=== PATIENT | male | born 1940 | race Caucasian/White ===

== ENCOUNTER 2020-09-27 12:16 | Outpatient (REF) | payer MEDICARE, SELFPAY ==
--- NOTE | 2020-09-27 | XR_ITS ---
EXAMINATION: XR SHOULDER, RIGHT CLINICAL INFORMATION: Right shoulder pain COMPARISON: 10/07/2019 TECHNIQUE: Three views of the right shoulder. FINDINGS: 2 surgical anchors are seen in expected location of insertion of the supraspinatus tendon/rotator cuff. No acute fracture or dislocation is evident. There is again noted to be some calcific density about the anterior aspect of the humeral head with some erosive change being evident. There is some mild spurring at the glenohumeral joint. There has been resection of the distal aspect of the right clavicle. No widening of the coracoclavicular space is seen. XR/XR shoulder RT min 2V IMPRESSION: No evidence of acute fracture or dislocation of the right shoulder. No significant change from study of 10/07/2019. Status post previous surgical anchor placement. Calcification which may be related to calcific tendinitis.
== END 2020-09-27 12:17 | disposition home or self-care (01) ==
LOC: HO.HOSX 12:16
PROVIDERS: PCP Internal Medicine; Visit Provider Physician Assistant
DX: M75.81 Other shoulder lesions, right shoulder (principal); M75.82 Other shoulder lesions, left shoulder
CPT/HCPCS: 20610; 73030; 99212; J1020

== ENCOUNTER 2020-12-01 08:42 | Outpatient (REF) | payer MEDICARE, SELFPAY ==
--- NOTE | 2020-12-01 09:43 | XR_ITS ---
EXAMINATION: XR KNEE, RIGHT XR KNEE STANDING BILATERAL CLINICAL INFORMATION: Osteoarthritis of right knee COMPARISON: 10/21/2019 and 07/06/2020 TECHNIQUE: AP standing view both knees Lateral and sunrise views of right knee FINDINGS: The AP standing view shows meniscal chondrocalcinosis and chronic osteoarthritis of tibiofemoral compartments of each knee. There is chronic, moderate loss of medial tibiofemoral joint space of each knee with subarticular sclerosis and marginal osteophyte formation. The joint space loss of the medial compartment the right knee is slightly worse compared to 10/21/2019, and is similar compared to 07/06/2020. The lateral and sunrise views of the right knee show normal alignment. Small joint effusion is present. There is and [id number] osteoarthritis of the patellofemoral compartment. No fracture or other acute pathology. Peripheral vessels are calcified. XR/XR knee RT 2V IMPRESSION: * The chronic tricompartmental osteoarthritis of the right knee is worst (moderate in severity) at the medial tibiofemoral compartment. No progression in the right knee osteoarthritis compared to 07/06/2020. * The osteoarthritis of the left knee (worst at the medial tibiofemoral compartment) remains similar in appearance compared to 10/21/2019.
--- NOTE | 2020-12-01 09:43 | XR_ITS ---
EXAMINATION: XR KNEE, RIGHT XR KNEE STANDING BILATERAL CLINICAL INFORMATION: Osteoarthritis of right knee COMPARISON: 10/21/2019 and 07/06/2020 TECHNIQUE: AP standing view both knees Lateral and sunrise views of right knee FINDINGS: The AP standing view shows meniscal chondrocalcinosis and chronic osteoarthritis of tibiofemoral compartments of each knee. There is chronic, moderate loss of medial tibiofemoral joint space of each knee with subarticular sclerosis and marginal osteophyte formation. The joint space loss of the medial compartment the right knee is slightly worse compared to 10/21/2019, and is similar compared to 07/06/2020. The lateral and sunrise views of the right knee show normal alignment. Small joint effusion is present. There is and [id number] osteoarthritis of the patellofemoral compartment. No fracture or other acute pathology. Peripheral vessels are calcified. XR/XR knee standing BI IMPRESSION: * The chronic tricompartmental osteoarthritis of the right knee is worst (moderate in severity) at the medial tibiofemoral compartment. No progression in the right knee osteoarthritis compared to 07/06/2020. * The osteoarthritis of the left knee (worst at the medial tibiofemoral compartment) remains similar in appearance compared to 10/21/2019.
== END 2020-12-01 08:43 | disposition home or self-care (01) ==
LOC: HO.HOSX 08:42
PROVIDERS: PCP Internal Medicine; Visit Provider Orthopaedic Surgery
DX: M17.0 Bilateral primary osteoarthritis of knee (principal)
CPT/HCPCS: 73560; 73565; 99212

== ENCOUNTER 2021-01-06 08:54 | Outpatient (REF) | payer MEDICARE, SELFPAY ==
[2021-01-06 09:43] LABS: MANUAL DIFF FLAG NO
[2021-01-06 09:47] LABS: Basophils Percent Auto 0.4 % (0-2); Eosinophils Absolute Auto 0.3 X10*3/uL (0.0-0.4); Eosinophils Percent Auto 5.9 % (0-4); Hematocrit 46.1 % (42-52); Hemoglobin 14.8 g/dl (14.0-18.0); Imm Gran Abs Auto 0.01 X10*3/uL (0.00-0.03); Imm Gran Pct Auto 0.2 % (0.0-0.4); Lymphocytes Absolute Auto 1.9 X10*3/uL (1.2-4.9); Lymphocytes Percent Auto 34.6 % (20-40); Mean Corpuscular HGB Conc 32.1 g/dl (31.0-36.0); Mean Corpuscular Hemoglobin 29.5 pg (27.0-33.0); Mean Corpuscular Volume 91.8 fL (80-98); Mean Platelet Volume 9.3 fL (9.4-12.4); Monocytes Absolute Auto 0.5 X10*3/uL (0.1-1.2); Monocytes Percent Auto 8.3 % (2-11); Neutrophils Absolute Auto 2.7 X10*3/uL (2.0-8.3); Neutrophils Percent Auto 50.6 % (45-73); Platelet Count 290 X10*3/uL (160-400); Red Blood Count 5.02 X10*6/uL (4.60-5.80); Red Cell Distribution Width 14.1 % (11.0-16.0); White Blood Count 5.4 X10*3/uL (4.8-10.8)
[2021-01-06 09:55] LABS: Estimated Average Glucose 126 mg/dL
[2021-01-06 10:12] LABS: Alanine Aminotransferase 14 U/L (0-40); Albumin Level 4.2 g/dL (3.5-5.0); Alkaline Phosphatase 85 U/L (39-117); Anion Gap 11 (12-20); Aspartate Amino Transferase 14 U/L (5-37); Blood Urea Nitrogen 14 mg/dL (9-16); Calcium 9.7 mg/dL (8.4-10.2); Carbon Dioxide 31 mmol/L (22-29); Chloride 106 mmol/L (96-108); Cholesterol 175 mg/dL; Estimated Glomerular Filt Rate > 60; Glucose Random 112 mg/dL (60-115); HDL Cholesterol 39 mg/dL; LDL Cholesterol Calculated 110 mg/dl; Potassium 4.8 mmol/L (3.3-5.1); Sodium 143 mmol/L (135-145); Total Protein 7.3 g/dL (6.5-8.0); Triglycerides 134 mg/dL
[2021-01-06 10:27] LABS: Creatinine Urine 81.68 mg/dL; Microalbum/Creatinine Ratio Ur 85.7 ug/mg cr
[2021-01-06 10:28] LABS: Free T4 (Free Thyroxine) 1.04 ng/dL (0.71-1.85); Thyroid Stimulating Hormone 3.53 uIU/mL (0.32-4.0)
[2021-01-08 09:40] LABS: Folate 11.5 ng/mL (> or = 4.0); Vitamin B12 240 pg/mL (200-900)
== END 2021-01-06 08:55 | disposition home or self-care (01) ==
LOC: HO.LAB 08:54
PROVIDERS: PCP Internal Medicine; Visit Provider Internal Medicine
DX: E11.65 Type 2 diabetes mellitus with hyperglycemia (principal); I10 Essential (primary) hypertension; E78.00 Pure hypercholesterolemia, unspecified
CPT/HCPCS: 36415; 80053; 80061; 82043; 82607; 82746; 83036; 84439; 84443; 85025

== ENCOUNTER → 2021-01-10 09:19 | Outpatient (BNVA) | payer MEDICARE, SELFPAY | PROVIDERS: PCP Internal Medicine; Visit Provider Orthopaedic Surgery ==

== ENCOUNTER → 2021-02-02 12:46 | Outpatient (BNVA) | payer MEDICARE, SELFPAY | PROVIDERS: PCP Internal Medicine; Visit Provider Physician Assistant | DX: M17.11 Unilateral primary osteoarthritis, right knee (principal) | CPT/HCPCS: 99212 ==

== ENCOUNTER 2021-02-03 | Outpatient (REF) | payer MEDICARE, SELFPAY ==
--- NOTE | 2021-02-03 | ECG_ITS ---
Test Reason : PRE OP Blood Pressure : / mmHG Vent. Rate : 059 BPM Atrial Rate : 059 BPM P-R Int : 256 ms QRS Dur : 084 ms QT Int : 402 ms P-R-T Axes : 058 031 039 degrees QTc Int : 397 ms Sinus bradycardia with 1st degree A-V block Otherwise normal ECG When compared with ECG of 29-NOV-2018 11:06, No significant change was found Referred By: Anahi Suarez Electronically Signed By:Lazarus Ybarra
--- NOTE | 2021-02-03 11:00 | P.CONAN_ITS ---
HPI - Anesthesia Eval Consult details Narrative: 81yo M for Right Knee Replacement Total daily opioids PCP cleared Pending EKG [facility] Active Problems Active Problems: All Active Problems (Updated 01/28/21 @ 12:56 by Herman Paul MD) Osteoarthritis, knee (Acute) Primary osteoarthritis of left knee (Acute) Primary osteoarthritis of right knee (Acute) Tendinitis of both rotator cuffs (Acute) Lateral epicondylitis of right elbow (Acute) Osteoarthritis of right knee (Acute) Hypercholesterolemia (Acute) Hypertension (Acute) Type 2 diabetes mellitus with hyperglycemia (Acute) Past Medical History Medical History (Updated 02/03/21 @ 12:07 by Mirella Mullen) Arthritis Carpal tunnel syndrome Cervical radicular pain Diabetic neuropathy Gout Hx of prostatic malignancy Hypercholesterolemia Hypertension Osteoarthritis, knee Peripheral vascular disease Type 2 diabetes mellitus with hyperglycemia Vitamin B12 deficiency Family History Family History Father No problems noted. Mother Heart disease Family history of problems with anesthesia: No Surgical History Surgical History (Updated 02/03/21 @ 12:07 by Mirella Mullen) H/O colonoscopy H/O left knee surgery H/O right knee surgery History of cataract surgery History of cholecystectomy History of lumbar surgery History of prostatectomy History of shoulder surgery History of thyroid nodule History of ventral hernia repair Hx of carpal tunnel repair History of Problems with Anesthesia: No Social History Social History (Updated 02/03/21 @ 12:12 by Mirella Mullen) Are you a primary health care manager to a significant other at home: No Do you presently have visiting nurse or other home services: Yes Alcohol intake: never Smoking Status: Never smoker Use of substances other than those prescribed or required for medical reasons: No Have you been hit, kicked, punched, or otherwise hurt by someone within the past year? If so, by whom?: No Advance Directives Information Provided: No Recently lost weight without trying: No service: Yes Current occupational status: disabled Current occupation: rt handed Narrative Narrative: No recent illness. Activity limited to pain. NO SOB/CP at rest. Meds Allergies Allergy/AdvReac Type Severity Reaction Status Date / Time No Known Allergies Allergy Verified 02/07/21 06:53 Home Medications Medication Instructions Recorded Confirmed Last Taken Type aspirin 81 mg tablet,delayed 81 mg PO DAILY 09/20/20 02/03/21 01/24/21 08:00 History release atorvastatin 10 mg tablet 10 mg PO DAILY 09/20/20 02/03/21 Unknown History folic acid 1 mg tablet 1 mg PO DAILY 09/20/20 02/03/21 Unknown History metoprolol succinate 25 mg 25 mg PO DAILY 09/20/20 02/03/21 Unknown History tablet,extended release 24 hr Exam Exam Date and Time: February 03, 2021 1100 Pertinent Lab Results Pertinent Lab Results: Laboratory Tests 01/06/21 01/06/21 01/06/21 09:05 09:05 09:05 WBC 5.4 Hgb 14.8 Hct 46.1 Plt Count 290 Sodium 143 Potassium 4.8 Chloride 106 Carbon Dioxide 31 H BUN 14 Creatinine 1.03 Estimated GFR > 60 Hemoglobin A1c % 6.0 Calcium 9.7 Total Bilirubin 1.0 AST 14 ALT 14 Alkaline Phosphatase 85 Total Protein 7.3 Albumin 4.2 TSH 3.53 Free T4 1.04 Narrative Narrative: EKG 01/2021 Vent. Rate : 059 BPM Atrial Rate : 059 BPM P-R Int : 256 ms QRS Dur : 084 ms QT Int : 402 ms P-R-T Axes : 058 031 039 degrees QTc Int : 397 ms Sinus bradycardia with 1st degree A-V block Otherwise normal ECG When compared with ECG of 29-NOV-2018 11:06, No significant change was found Airway Mallampati Class: I TM Dist: >3cm Neck ROM: Full Denture: Upper Loose/Missing/Broken Teeth: Yes (lower molars missing) Heart: RRR Lungs: CTAB Assessment and Plan Assessment Anesthesia Assessment: Anesthesia Plan Discussed and PAT Visit
[2021-02-03 11:56] VITALS: BP 168/83; PULSE 68; RESP 20; O2SAT 98; BMI 26.9
[2021-02-03 13:39] LABS: Alanine Aminotransferase 10 U/L (0-40); Albumin Level 4.1 g/dL (3.5-5.0); Alkaline Phosphatase 75 U/L (39-117); Anion Gap 9 (12-20); Aspartate Amino Transferase 13 U/L (5-37); Bilirubin Total 0.4 mg/dL (0.0-1.0); Blood Urea Nitrogen 12 mg/dL (9-16); Calcium 9.4 mg/dL (8.4-10.2); Carbon Dioxide 29 mmol/L (22-29); Chloride 108 mmol/L (96-108); Cholesterol 123 mg/dL; Creatinine Clr Calc Pharmacy 67.9; Estimated Glomerular Filt Rate > 60; Glucose Random 108 mg/dL (60-115); HDL Cholesterol 38 mg/dL; LDL Cholesterol Calculated 55 mg/dl; Potassium 3.9 mmol/L (3.3-5.1); Sodium 142 mmol/L (135-145); Total Protein 6.9 g/dL (6.5-8.0); Triglycerides 152 mg/dL
[2021-02-03 13:52] LABS: Estimated Average Glucose 120 mg/dL; Hemoglobin A1c % 5.8 %
[2021-02-03 14:02] LABS: Creatinine Urine 123.42 mg/dL
[2021-02-03 14:16] LABS: MRSA Nasal PCR NEGATIVE (Negative); SA Nasal PCR NEGATIVE (Negative)
[2021-02-07 06:48] LABS: COVID-19 Test Negative (Negative); IDNOW Serial# 9DD0AD1C
[2021-02-07 07:00] LABS: Glucose, Whole Blood 112 mg/dL (60-115)
== END 2021-02-07 06:19 | disposition home or self-care (01) ==
LOC: HO.PAT
PROVIDERS: Physician Assistant; PCP Internal Medicine; Visit Provider Orthopaedic Surgery
DX: Z01.818 Encounter for other preprocedural examination (principal); M17.11 Unilateral primary osteoarthritis, right knee; E11.65 Type 2 diabetes mellitus with hyperglycemia; E78.00 Pure hypercholesterolemia, unspecified; Z79.891 Long term (current) use of opiate analgesic; Z20.822 Contact with and (suspected) exposure to COVID-19
CPT/HCPCS: 36415; 80053; 80061; 82947; 83036; 86850; 86900; 87635; 87640; 87641; 93005

== ENCOUNTER → 2021-02-21 09:53 | Outpatient (BNVA) | payer MEDICARE, SELFPAY | PROVIDERS: PCP Internal Medicine; Visit Provider Orthopaedic Surgery ==

== ENCOUNTER 2021-02-23 13:24 | Outpatient (REF) | payer MEDICARE, SELFPAY | END 2021-02-23 13:25 | disposition home or self-care (01) | LOC: HO.LAB 13:24 | PROVIDERS: PCP Internal Medicine; Visit Provider Orthopaedic Surgery | DX: Z13.89 Encounter for screening for other disorder (principal) ==

== ENCOUNTER 2021-02-28 08:11 | Inpatient (IN) | payer MEDICARE, SELFPAY ==
--- NOTE | 2021-02-25 13:22 | HO.ANESPROP2 ---
Documented by User: Nadya Humphries 02/25/21 13:25 HPI - Anesthesia Eval Consult details Narrative: 81yo M for Right Knee Replacement Total daily opioids PCP cleared Prev cancelled 01/2021 d/t skin abrasion PMFSH Active Problems Active Problems: All Active Problems (Updated 02/03/21 @ 12:07 by Mirella Mullen) Osteoarthritis of right knee (Acute) Lateral epicondylitis of right elbow (Acute) Tendinitis of both rotator cuffs (Acute) Primary osteoarthritis of right knee (Acute) Primary osteoarthritis of left knee (Acute) Osteoarthritis, knee (Acute) Hypercholesterolemia (Acute) Hypertension (Acute) Type 2 diabetes mellitus with hyperglycemia (Acute) Past Medical History Medical History Arthritis Carpal tunnel syndrome Cervical radicular pain Diabetic neuropathy Gout Hx of prostatic malignancy Hypercholesterolemia Hypertension Osteoarthritis, knee Peripheral vascular disease Type 2 diabetes mellitus with hyperglycemia Vitamin B12 deficiency Family History Family History Father No problems noted. Mother Heart disease Surgical History Surgical History H/O colonoscopy H/O left knee surgery H/O right knee surgery History of cataract surgery History of cholecystectomy History of lumbar surgery History of prostatectomy History of shoulder surgery History of thyroid nodule History of ventral hernia repair Hx of carpal tunnel repair Social History Social History Alcohol intake: never Smoking Status: Never smoker Use of substances other than those prescribed or required for medical reasons: No Advance Directives: No Advance Directives Information Provided: No Advance Directives on File: No Recently lost weight without trying: Yes service: Yes Current occupational status: disabled Current occupation: rt handed Meds Allergies Allergy/AdvReac Type Severity Reaction Status Date / Time No Known Allergies Allergy Verified 02/07/21 06:53 Home Medications Medication Instructions Recorded Confirmed Last Taken Type aspirin 81 mg tablet,delayed 81 mg PO DAILY 09/20/20 02/21/21 01/24/21 08:00 History release atorvastatin 10 mg tablet 10 mg PO DAILY 09/20/20 02/21/21 Unknown History metoprolol succinate 25 mg 25 mg PO DAILY 09/20/20 02/21/21 Unknown History tablet,extended release 24 hr Exam Exam Date and Time: February 25, 2021 1322 Pertinent Lab Results Pertinent Lab Results: Laboratory Tests 02/23/21 13:40 Blood Type A Positive Antibody Screen NEGATIVE Laboratory Tests 01/06/21 02/03/21 09:05 12:48 WBC 5.4 Hgb 14.8 Hct 46.1 Plt Count 290 Sodium 142 Potassium 3.9 Chloride 108 Carbon Dioxide 29 BUN 12 Creatinine 0.88 Narrative Narrative: EKG 01/2021 Vent. Rate : 059 BPM Atrial Rate : 059 BPM P-R Int : 256 ms QRS Dur : 084 ms QT Int : 402 ms P-R-T Axes : 058 031 039 degrees QTc Int : 397 ms Sinus bradycardia with 1st degree A-V block Otherwise normal ECG When compared with ECG of 29-NOV-2018 11:06, No significant change was found Assessment and Plan Assessment Anesthesia Assessment: Chart Reviewed (Previously seen in PAT and anesthesia plan discussed.) Documented by User: Melba Oh 02/28/21 09:07 [facility] Past Medical History Medical History Arthritis Carpal tunnel syndrome Cervical radicular pain Diabetic neuropathy Gout Hx of prostatic malignancy Hypercholesterolemia Hypertension Osteoarthritis, knee Peripheral vascular disease Type 2 diabetes mellitus with hyperglycemia Vitamin B12 deficiency Family History Family History Father No problems noted. Mother Heart disease Surgical History Surgical History H/O colonoscopy H/O left knee surgery H/O right knee surgery History of cataract surgery History of cholecystectomy History of lumbar surgery History of prostatectomy History of shoulder surgery History of thyroid nodule History of ventral hernia repair Hx of carpal tunnel repair Social History Social History Alcohol intake: never Smoking Status: Never smoker Use of substances other than those prescribed or required for medical reasons: No Advance Directives: No Advance Directives Information Provided: No Advance Directives on File: No Recently lost weight without trying: Yes service: Yes Current occupational status: disabled Current occupation: rt handed Meds Allergies Allergy/AdvReac Type Severity Reaction Status Date / Time No Known Allergies Allergy Verified 02/07/21 06:53 Home Medications Medication Instructions Recorded Confirmed Last Taken Type aspirin 81 mg tablet,delayed 81 mg PO DAILY 09/20/20 02/21/21 01/24/21 08:00 History release atorvastatin 10 mg tablet 10 mg PO DAILY 09/20/20 02/21/21 Unknown History metoprolol succinate 25 mg 25 mg PO DAILY 09/20/20 02/21/21 Unknown History tablet,extended release 24 hr Assessment and Plan Assessment Anesthesia Assessment: Anesthesia Plan Discussed and Chart Reviewed Final Anesthetic Review NPO: Yes ASA Class: III Final Preanesthetic Review: No Changes in Pt Med Stat, Meds/Allgs Chart Reviewed, Consent Obtained/Reviewed and Anes Risks/Benef Reviewed Patient Risk: Intermediate Procedure Risk: Intermediate Assessment/Block/Sedation in SS: Assess/Block/Sedation- Anesthetic Plan Anesthetic Plan: Spinal Disposition: Standard PACU
[2021-02-28] VITALS (15 sets, daily range): BP systolic 119–160; BP diastolic 61–87; PULSE 63–95; RESP 14–20; TEMP 35.8–37; O2SAT 93–99; BMI 26.6
--- NOTE | ~2021-02-28 | XR_ITS ---
EXAMINATION: XR KNEE, RIGHT CLINICAL INFORMATION: Postop COMPARISON: 12/01/2020 TECHNIQUE: AP and lateral views of the right knee. FINDINGS: Prosthetic components of the right total knee arthroplasty are appropriately aligned. No periprosthetic fracture. Gas from recent surgery is present in the joint and surrounding soft tissues. A joint effusion is present. Skin geremias are present anteriorly. XR/XR knee RT 2V IMPRESSION: Appropriate alignment of the right total knee arthroplasty.
--- NOTE | 2021-02-28 07:25 | MHC.SHP ---
Pre-Procedural Eval Section A The patient is an INPATIENT: No Changes since office visit: No Cold of Flu in the past 2 weeks, No New Medical Problems, No Changes in Medication and No Patient answered all questions The History & Physical has been completed within 30 days and I have reviewed it.: Yes Section B Chief Complaint: osteoarthritis right knee Allergies: Allergies Allergy/AdvReac Type Severity Reaction Status Date / Time No Known Allergies Allergy Verified 02/07/21 06:53 Plan I have reviewed the history and physical and performed a pertinent physical examination on my patient. No changes have occurred unless specified.
[2021-02-28 08:32] LABS: COVID-19 Test Negative (Negative)
[2021-02-28] MEDS: Lactated Ringers 1,000 ML 100 ML IVCONT ×2 (08:38→15:52)
[2021-02-28] MEDS: Gabapentin 600 MG TABLET PO ×2 (08:40→21:03)
--- NOTE | 2021-02-28 15:34 | P.CONIM_ITS ---
History of Present Illness Data of Consult Service Date: 02/28/21 Requesting physician: Bradley Bacon Primary Care Provider: Herman Paul MD HPI Reason for consult: Medical Management 81-year-old male with history of hypertension, hyperlipidemia and diabetes. Admitted by Orthopedic surgery and is status post right total knee arthroplasty. He has been eating and drinking without any nausea vomiting. He has minimal pain at this time. Vital signs are stable. Medical consultation was placed. Review of Systems Review of Systems: Denies any recent fever chills or decrease in appetite respiratory denies any shortness of breath coverage production cardiovascular is adjustment of any PND or edema gastrointestinal denies any dysphagia abdominal pain nausea vomiting or diarrhea genitourinary denies any dysuria frequency or hematuria musculoskeletal mild pain to knee neuropsych denies any weakness or seizures all other systems reviewed are negative [facility] Medical History Arthritis Carpal tunnel syndrome Cervical radicular pain Diabetic neuropathy Gout Hx of prostatic malignancy Hypercholesterolemia Hypertension Osteoarthritis, knee Peripheral vascular disease Type 2 diabetes mellitus with hyperglycemia Vitamin B12 deficiency Family History Father No problems noted. Mother Heart disease Surgical History H/O colonoscopy H/O left knee surgery H/O right knee surgery History of cataract surgery History of cholecystectomy History of lumbar surgery History of prostatectomy History of shoulder surgery History of thyroid nodule History of ventral hernia repair Hx of carpal tunnel repair Social History Household Members: Significant Other Do you presently have visiting nurse or other home services: Yes Alcohol intake: never Smoking Status: Never smoker Use of substances other than those prescribed or required for medical reasons: No Currently Displaying Signs/Symptoms of Drug Intoxication Withdrawal: No Have you been hit, kicked, punched, or otherwise hurt by someone within the past year? If so, by whom?: No Do you feel safe in your current relationship?: Yes Is there a partner from a previous relationship who is making you feel unsafe now?: No Are you made to feel afraid or neglected: No Are you DNR?: No Advance Directives: No Advance Directives Information Provided: No Advance Directives on File: No Do you have thoughts of harming others: None Do you have a plan to hurt others: No Plan Recently lost weight without trying: Yes How much weight loss: 14-23 pounds Eating poorly because of decreased appetite: No Nutrition screen score: 4 Nutrition Risks: No Nutritional Risk Poor oral hygiene: No service: Yes Current occupational status: disabled Current occupation: rt handed Meds Allergies Allergy/AdvReac Type Severity Reaction Status Date / Time No Known Allergies Allergy Verified 02/07/21 06:53 Active Medications: Current Medications Generic Name Dose Route Start Last Admin Trade Name Freq PRN Reason Stop Dose Admin Acetaminophen 650 mg 02/28/21 16:00 Acetaminophen 325 Mg Tablet PO Q6H [facility] Aspirin 325 mg 03/01/21 21:10 Aspirin 325 Mg Tablet PO BID [facility] Lactated Ringer's 1,000 mls @ 100 mls/hr 02/28/21 07:45 02/28/21 15:26 Lr IVCONT Infused .Q10H [facility] Infusion Cefazolin Sodium/Dextrose 2 gm in 50 mls @ 100 mls/hr 02/28/21 15:12 Ancef IV 02/28/21 15:41 POSTOP ONE Ketorolac Tromethamine 15 mg 02/28/21 15:12 Ketorolac Tromethamine 15 Mg/Ml Vial IVPUSH Q6H [facility] Morphine Sulfate 2 mg 02/28/21 15:12 Morphine Sulfate 2 Mg/Ml Cartridge IVPUSH Q2H PRN Pain, Severe (Pain Scale 7-10) Naloxone HCl 0.2 mg 02/28/21 15:12 Naloxone Hcl 0.4 Mg/Ml Vial IVPUSH Q2M PRN Excessive sedation or RR < 8 Ondansetron HCl 4 mg 02/28/21 15:12 Ondansetron Hcl 4 Mg/2 Ml Vial IVPUSH Q8H PRN Nausea and Vomiting Oxycodone HCl 10 mg 02/28/21 15:12 Oxycodone Hcl Immed Release 5 Mg Tablet PO Q6H [facility] Pharmacy Consult 1 each 02/28/21 15:15 Consult Rx Perform Med Rec MISCELLANE ONCE PRN Consult order Sodium Chloride 3 ml 02/28/21 16:00 0.9 % Sodium Chloride Flush 3 Ml Syringe IVFLUSH QSHIFT [facility] Home Medications Medication Instructions Recorded Confirmed Last Taken Type aspirin 81 mg tablet,delayed 81 mg PO DAILY 09/20/20 02/28/21 01/24/21 08:00 History release atorvastatin 10 mg tablet 10 mg PO DAILY 09/20/20 02/28/21 Unknown History metoprolol succinate 25 mg 25 mg PO DAILY 09/20/20 02/21/21 Unknown History tablet,extended release 24 hr tramadol 50 mg PO Q6-8H 02/28/21 02/28/21 Unknown History Physical Exam Vital Signs and Narrative: Vital Signs: Last Vital Signs Temp 96.5 F L 02/28/21 15:17 Pulse 79 02/28/21 15:17 Resp 20 02/28/21 15:17 BP 160/87 H 02/28/21 15:17 Pulse Ox 99 02/28/21 15:17 Body Mass Index 26.6 Appearing in no acute distress head is normocephalic atraumatic eyes pupils are PERRLA sclera is anicteric mouth throat mucous membranes are intact and moist neck is supple no lymphadenopathy, no JVD noted lung sounds are clear to auscultation heart regular rate rhythm, clear S1, S2 positive bowel sounds, abdomen is soft, nontender neuro patient is alert x3, no focal deficits Results Labs Labs: Laboratory Results - last 24 hr 02/28/21 07:59 COVID-19 ([facility]) Negative COVID-19 Clin Com See Note Assessment and Plan (1) Osteoarthritis of right knee: Qualifiers: Osteoarthritis type: primary Qualified Code(s): M17.11 - Unilateral primary osteoarthritis, right knee Status: Acute 81-year-old man admitted Orthopedic surgery and status post right total knee arthroplasty. Right total knee arthroplasty. -management as per surgical team -pain management Hypertension. Blood pressure is on the higher side. -continue home medications Diabetes mellitus -sliding scale -ADA diet DVT prophylaxis with full-dose aspirin Attending: Dr. Singh
[2021-02-28] MEDS: 0.9 % Sodium Chloride Flush 3 ML SYRINGE IVFLUSH (15:52)
[2021-02-28] MEDS: ceFAZolin Sodium/Dextrose,Iso 2 GM/50 ML PIGGYBACK IV (15:53)
[2021-02-28] MEDS: Acetaminophen 325 MG TABLET 650 MG PO ×2 (15:54→21:03)
[2021-02-28] MEDS: oxyCODONE HCl Immed Release 5 MG TABLET 10 MG PO ×2 (15:55→21:02)
[2021-02-28] MEDS: Ketorolac Tromethamine 15 MG/ML VIAL IVPUSH ×2 (17:49→23:13)
[2021-02-28 22:20] LABS: Glucose, Whole Blood 167 mg/dL (60-115)
[2021-02-28] MEDS: Insulin Lispro 100 UNIT/ML 3 ML VIAL SUBCUT (23:16)
[2021-03-01] VITALS (7 sets, daily range): BP systolic 114–148; BP diastolic 64–78; PULSE 59–78; RESP 16–20; TEMP 36.2–37; O2SAT 94–98; BMI 26.6
[2021-03-01] MEDS: Lactated Ringers 1,000 ML 100 ML IVCONT ×3 (03:33→23:34)
[2021-03-01] MEDS: Acetaminophen 325 MG TABLET 650 MG PO ×4 (03:41→21:16)
[2021-03-01] MEDS: oxyCODONE HCl Immed Release 5 MG TABLET 10 MG PO ×4 (03:42→21:15)
[2021-03-01] MEDS: Ketorolac Tromethamine 15 MG/ML VIAL IVPUSH ×3 (05:33→18:03)
[2021-03-01 05:51] LABS: Hematocrit 33.9 % (42-52); Hemoglobin 12.2 g/dl (14.0-18.0)
--- NOTE | 2021-03-01 07:38 | P.PNOP_ITS ---
Subjective Subjective Date of Service: 03/01/21 Interval history: POD1 s/p RTKA. Patient resting comfortably in bed. No overnight events. Pain is well managed. Physical Exam Vital Signs: Vital Signs: Last Vital Signs Temp 97.6 F 03/01/21 03:21 Pulse 72 03/01/21 03:21 Resp 20 03/01/21 03:21 BP 132/71 03/01/21 03:21 Pulse Ox 96 03/01/21 03:21 Body Mass Index 26.6 Const: General: cooperative, healthy appearing and no acute distress Resp: Effort & Inspection: normal respiratory effort and able to speak in complete sentences Cardio: Rate: regular rate Peripheral pulses: Peripheral pulses 2+ throughout GI: Palpation (GI): Soft to palpation Skin: Lesions: no lesions Rashes: no rashes Extrem: Other: Right knee Aquacel dressing intact, clean, dry. No ecchymosis, redness, drainage. NVI. Progress Note: A&P Assessment and plan (1) S/P total knee arthroplasty: Status: Acute Assessment and Plan: Continue pain mgmnt Begin ASA for dvt ppx begin PT for Right TKA Dispo planning-Pending PT eval, pain mgmnt Fall Risk Details Current Medications: Current Medications Generic Name Dose Route Start Last Admin Trade Name Freq PRN Reason Stop Dose Admin Acetaminophen 650 mg 02/28/21 16:00 03/01/21 03:41 Acetaminophen 325 Mg Tablet PO 650 mg Q6H [facility] Administration Aspirin 325 mg 03/01/21 21:10 Aspirin 325 Mg Tablet PO BID [facility] Atorvastatin Calcium 10 mg 03/01/21 09:00 Atorvastatin Calcium 10 Mg Tablet PO DAILY [facility] Colchicine 0.6 mg 03/01/21 09:00 Colchicine 0.6 Mg Tablet PO DAILY [facility] Cyanocobalamin 1,000 mcg 03/01/21 09:00 Cyanocobalamin (Vitamin B-12) 1,000 Mcg Tablet PO DAILY [facility] Fenofibrate 160 mg 03/01/21 09:00 Fenofibrate 160 Mg Tablet PO DAILY [facility] Gabapentin 600 mg 02/28/21 21:00 02/28/21 21:03 Gabapentin 600 Mg Tablet PO 600 mg BID [facility] Administration Lactated Ringer's 1,000 mls @ 100 mls/hr 02/28/21 07:45 03/01/21 03:33 Lr IVCONT 100 mls/hr .Q10H [facility] Administration Insulin Human Lispro 0 unit 02/28/21 22:50 02/28/21 23:16 Insulin Lispro 100 Unit/Ml 3 Ml Vial SUBCUT 2 unit QIDACHS [facility] Administration Protocol Ketorolac Tromethamine 15 mg 02/28/21 18:00 03/01/21 05:33 Ketorolac Tromethamine 15 Mg/Ml Vial IVPUSH 03/05/21 17:59 15 mg Q6H [facility] Administration Lisinopril 30 mg 03/01/21 09:00 Lisinopril 10 Mg Tablet PO DAILY [facility] Protocol Morphine Sulfate 2 mg 02/28/21 15:12 Morphine Sulfate 2 Mg/Ml Cartridge IVPUSH Q2H PRN Pain, Severe (Pain Scale 7-10) Naloxone HCl 0.2 mg 02/28/21 15:12 Naloxone Hcl 0.4 Mg/Ml Vial IVPUSH Q2M PRN Excessive sedation or RR < 8 Ondansetron HCl 4 mg 02/28/21 15:12 Ondansetron Hcl 4 Mg/2 Ml Vial IVPUSH Q8H PRN Nausea and Vomiting Oxycodone HCl 10 mg 02/28/21 16:00 03/01/21 03:42 Oxycodone Hcl Immed Release 5 Mg Tablet PO 10 mg Q6H [facility] Administration Pharmacy Consult 1 each 02/28/21 15:15 Consult Rx Perform Med Rec MISCELLANE ONCE PRN Consult order Sodium Chloride 3 ml 02/28/21 16:00 03/01/21 07:13 0.9 % Sodium Chloride Flush 3 Ml Syringe IVFLUSH Not Given QSHIFT [facility] Time Spent With Patient Time: Total time spent is greater than 50% in coordination of care (as documented) at patient's floor/unit and/or counseling patient: Time with patient: less than 15 minutes
[2021-03-01 07:41] LABS: Glucose, Whole Blood 123 mg/dL (60-115)
[2021-03-01] MEDS: Colchicine 0.6 MG TABLET PO (07:53)
[2021-03-01] MEDS: Atorvastatin Calcium 10 MG TABLET PO (07:53)
[2021-03-01] MEDS: Fenofibrate 160 MG TABLET PO (07:53)
[2021-03-01] MEDS: lisinopriL 10 MG TABLET 30 MG PO (07:53)
[2021-03-01] MEDS: Gabapentin 600 MG TABLET PO ×2 (07:53→21:14)
[2021-03-01] MEDS: Cyanocobalamin (Vitamin B-12) 1,000 MCG TABLET 1000 MCG PO (07:53)
--- NOTE | 2021-03-01 10:27 | MHC.CM.PN ---
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 MET WITH PATIENT WITH [facility] [employer] SIM LIVES WITH HIS , HE IS ON DISABILITY FROM CHRONIC BACK PAIN, A DISK PROBLEM, HE HAS NO VNA NO DME SERVICES IN THE HOME, PATIENT REPORTS THAT HE WALKS DAILY THERAPY FOR HIS BACK, HE IS INDEPENDENT IN HIS ADLS AND MOBILITY, , HE CONFIRMED HIS PCP DR CORINNE JIANG . WE DISCUSSED THE PHYSICAL THERAPY RECOMMENDATIONS FOR HOME PHYSICAL THERAPY , WE DISCUSSED AGENCIES AND HE CHOSE THE [place] [facility] . THIS REFERRAL WAS INITATED, [facility] IMM EXPLAINED AND GIVEN TO PATIENT DISCHARGE PLAN HOME TOMORROW WITH NEW REFERRAL TO THE [facility] [facility] FOR HOME PHYSICAL THERAPY. TRANSPORTATION FAMILY PCP DR JIANG ORTHOPEDIC SURGEON FOLLOW UP PER DISCHARGE INSTRUCTIONS TRANSPORTATION FAMILY
[2021-03-01 11:28] LABS: Glucose, Whole Blood 126 mg/dL (60-115)
--- NOTE | 2021-03-01 12:42 | MHC.CLN ---
RE: CONSULT SEE CLINICAL NUTRITION ASSESSMENT
--- NOTE | 2021-03-01 13:26 | HO.PM.IMPN ---
Subjective Subjective Date of Service: 03/01/21 Interval History: feels well Cardiovascular Cardiovascular: Reports no additional cardiovascular complaints Gastrointestinal Gastrointestinal: Reports no additional gastrointestinal complaints Physical Exam Vital Signs: Vital Signs: Last Vital Signs Temp 98.6 F 03/01/21 11:34 Pulse 75 03/01/21 11:34 Resp 18 03/01/21 11:34 BP 148/67 H 03/01/21 11:34 Pulse Ox 96 03/01/21 11:34 Body Mass Index 26.6 General: AO X 3, no acute distress Resp: CTA bilateral CVS: S1,S2,RRR GI: soft, non tender, non distended Neuro: motor grossly intact Psych: appropriate affect Objective Data Current Medications Generic Name Dose Route Start Last Admin Trade Name Freq PRN Reason Stop Dose Admin Acetaminophen 650 mg 02/28/21 16:00 03/01/21 09:14 Acetaminophen 325 Mg Tablet PO 650 mg Q6H ARIES Administration Aspirin 325 mg 03/01/21 21:10 Aspirin 325 Mg Tablet PO BID ARIES Atorvastatin Calcium 10 mg 03/01/21 09:00 03/01/21 07:53 Atorvastatin Calcium 10 Mg Tablet PO 10 mg DAILY ARIES Administration Colchicine 0.6 mg 03/01/21 09:00 03/01/21 07:53 Colchicine 0.6 Mg Tablet PO 0.6 mg DAILY ARIES Administration Cyanocobalamin 1,000 mcg 03/01/21 09:00 03/01/21 07:53 Cyanocobalamin (Vitamin B-12) 1,000 Mcg Tablet PO 1,000 mcg DAILY ARIES Administration Fenofibrate 160 mg 03/01/21 09:00 03/01/21 07:53 Fenofibrate 160 Mg Tablet PO 160 mg DAILY ARIES Administration Gabapentin 600 mg 02/28/21 21:00 03/01/21 07:53 Gabapentin 600 Mg Tablet PO 600 mg BID ARIES Administration Lactated Ringer's 1,000 mls @ 100 mls/hr 02/28/21 07:45 03/01/21 03:33 Lr IVCONT 100 mls/hr .Q10H ARIES Administration Insulin Human Lispro 0 unit 02/28/21 22:50 03/01/21 11:30 Insulin Lispro 100 Unit/Ml 3 Ml Vial SUBCUT Not Given QIDACHS [facility] Protocol Ketorolac Tromethamine 15 mg 02/28/21 18:00 03/01/21 11:43 Ketorolac Tromethamine 15 Mg/Ml Vial IVPUSH 03/05/21 17:59 15 mg Q6H ARIES Administration Lisinopril 30 mg 03/01/21 09:00 03/01/21 07:53 Lisinopril 10 Mg Tablet PO 30 mg DAILY ARIES Administration Protocol Morphine Sulfate 2 mg 02/28/21 15:12 Morphine Sulfate 2 Mg/Ml Cartridge IVPUSH Q2H PRN Pain, Severe (Pain Scale 7-10) Naloxone HCl 0.2 mg 02/28/21 15:12 Naloxone Hcl 0.4 Mg/Ml Vial IVPUSH Q2M PRN Excessive sedation or RR < 8 Ondansetron HCl 4 mg 02/28/21 15:12 Ondansetron Hcl 4 Mg/2 Ml Vial IVPUSH Q8H PRN Nausea and Vomiting Oxycodone HCl 10 mg 02/28/21 16:00 03/01/21 09:14 Oxycodone Hcl Immed Release 5 Mg Tablet PO 10 mg Q6H ARIES Administration Pharmacy Consult 1 each 02/28/21 15:15 Consult Rx Perform Med Rec MISCELLANE ONCE PRN Consult order Sodium Chloride 3 ml 02/28/21 16:00 03/01/21 07:13 0.9 % Sodium Chloride Flush 3 Ml Syringe IVFLUSH Not Given QSHIFT [facility] Labs CBC & Chem 7: 03/01/21 05:37 Assessment and Plan (1) Hypertension: Status: Acute Assessment and Plan: 81-year-old man admitted Orthopedic surgery and status post right total knee arthroplasty. Right total knee arthroplasty. -management as per surgical team pod 1 Hypertension. Blood pressure is on the higher side. -continue lisinopil Diabetes mellitus -sliding scale -ADA diet
[2021-03-01 14:00] LABS: Glucose, Whole Blood 99 mg/dL (60-115)
--- NOTE | 2021-03-01 15:47 | HO.POSTANES ---
Post Anesthesia Evaluation Post Anesthesia Evaluation Vital Signs: Vital Signs Temp Pulse Resp BP Pulse Ox 03/01/21 15:35 98.1 F 62 16 123/64 95 03/01/21 11:34 98.6 F 75 18 148/67 H 96 03/01/21 07:53 73 142/67 H 03/01/21 07:45 98.4 F 73 19 142/67 H 98 Anesthesia: Spinal and Nerve Block Mental Status: Awake Pain Control: Satisfactory Nausea/Vomiting: None Hydration: Adequate Anesthesia-Related Issues: No Anes. Related Issues
[2021-03-01 16:38] LABS: Glucose, Whole Blood 121 mg/dL (60-115)
[2021-03-01 20:36] LABS: Glucose, Whole Blood 122 mg/dL (60-115)
[2021-03-01] MEDS: Aspirin 325 MG TABLET PO (21:14)
[2021-03-02 03:35] VITALS: BP 128/71; PULSE 62; RESP 20; TEMP 36.4; O2SAT 94
[2021-03-02] MEDS: Acetaminophen 325 MG TABLET 650 MG PO ×2 (03:55→09:40)
[2021-03-02] MEDS: Ketorolac Tromethamine 15 MG/ML VIAL IVPUSH (05:38)
[2021-03-02 07:29] VITALS: BP 132/61; PULSE 66; RESP 18; TEMP 36.7; O2SAT 95
[2021-03-02 07:38] LABS: Glucose, Whole Blood 133 mg/dL (60-115)
[2021-03-02 08:00] LABS: Hematocrit 29.9 % (42-52)
--- NOTE | 2021-03-02 08:40 | W.MHC.F2F ---
Service Date Service Date: 03/02/21 Reasons for Services Reason for physical therapy: home safety and mobility, therapeutic exercises, gait/transfer training, ADL training and energy conservation Reason for occupational therapy: home safety and mobility, therapeutic exercises, gait/transfer training, ADL training and energy conservation Overseeing Care: Bradley Bacon Homebound: Leaving the home is medically contraindicated at this time without the asist of a device and/or another person due th the listed conditions above and below. Homebound supporting statement: Pt. is considered home bound due to recent surgery. Unable to drive, poor balance, poor gait mechanics. Certification: Based on the above findings, I certify that this patient is confined to the home and needs intermittent group home care, physical therapy and/or speech therapy, or continues to need occupational therapy. The patient is under my care, and I have initiated the establishment of the plan of care. The patient will be followed by a physician who will periodically review the plan of care.
--- NOTE | 2021-03-02 08:41 | P.DS_ITS ---
DS: Providers Provider Date of Service: 03/02/21 Date of admission: 02/28/21 08:11 Primary care physician: Herman Paul MD Consults: 02/28/21 15:12 Consult to Hospitalist Routine Consulting Provider: Hospitalist Reason For Exam: medical issues DS: Diagnosis Discharge Diagnosis (1) S/P total knee arthroplasty: Status: Acute Problem details: 81-year-old gentleman who presents to the office for right knee pain. He was found have osteoarthritis of the right knee and failed all conservative measures continued to have pain with daily activities. Therefore he consented to move forward with right total knee arthroplasty. DS: Medications Discharge Medications Home Medications: Home Medications Medication Instructions Recorded Confirmed atorvastatin 10 mg tablet 10 mg PO DAILY 09/20/20 02/28/21 metoprolol succinate 25 mg 25 mg PO DAILY 09/20/20 02/28/21 tablet,extended release 24 hr Previous Rx's Medication Instructions Recorded colchicine 0.6 mg tablet 0.6 mg PO DAILY #90 tab 09/06/20 fenofibrate 160 mg tablet 160 mg PO DAILY #90 tab 10/20/20 cyanocobalamin (vitamin B-12) 1,000 mcg PO DAILY #90 tab 12/27/20 1,000 mcg tablet gabapentin 600 mg tablet 600 mg PO BID #180 tab 01/05/21 lisinopril 30 mg tablet 30 mg PO DAILY #90 tab 01/28/21 folic acid 1 mg tablet 1 mg PO DAILY #90 tab 02/23/21 acetaminophen 650 mg PO Q6H 30 Days #240 tab 03/02/21 aspirin 325 mg PO BID 14 Days #28 tab 03/02/21 oxycodone 5 mg PO Q6H 7 Days #28 tab 03/02/21 DS: Summary Hospital Course Hospital Course: The patient underwent a successful right total knee arthroplasty, was transferred to PACU and then to the floor to recover. During their stay, their vitals were stable, afebrile at 98.0. Labs were unremarkable, H/H 10.0/29.9 . POD 1 he was started on aspirin for DVT ppx, they also received services twice a day. Prior to discharge, their dressing was change, incision clean dry and intact, new Aquacel dressing applied and the plan was to be discharged home with VNA services Time Spent with Patient Time attestation: Total time spent providing and/or coordinating discharge services: Discharge coordination time: Less than 30 minutes Physical Exam Vital Signs: Vital Signs: Last Vital Signs Temp 98.0 F 03/02/21 07:29 Pulse 66 03/02/21 07:29 Resp 18 03/02/21 07:29 BP 132/61 03/02/21 07:29 Pulse Ox 95 03/02/21 07:29 Body Mass Index 26.6 Const: General: cooperative, healthy appearing and no acute distress Resp: Effort & Inspection: normal respiratory effort and able to speak in complete sentences Cardio: Rate: regular rate Peripheral pulses: Peripheral pulses 2+ throughout GI: Palpation (GI): Soft to palpation Skin: General skin exam: no rashes or lesions noted Extrem: Other: Right knee incision clean dry and intact. Jameson intact. No erythema or joint effusion. Calf supple nontender. Neurovascularly intact. DS: Data Data Completed and Pending Pending studies at discharge: Pending at discharge 02/28/21 11:19 Surgical [PTH] Routine Labs on day of discharge: Laboratory Results - last 24 hr 02/28/21 03/01/21 03/01/21 08:13 11:23 16:33 Hgb Hct POC Glucose 99 126 H 121 H 03/01/21 03/02/21 03/02/21 20:18 07:32 07:51 Hgb 10.0 L Hct 29.9 L POC Glucose 122 H 133 H Discharge Plan Discharge Patient Disposition: Home Health Service Discharge Diagnosis: s/p RT TKA Referrals: [facility] [Outside] - 1 Day (discharged home with new referral to [facility] for home physical therapy , they will come out to your home the day after you are discharged, transportation -family pcp- herman lopez please call for post hospityla discharge for follow up orthopedic sutgeon -follow up per discharge instructions) Anahi Suarez PA-C [Physician Fee Clerk] - None (03/16/21 12:45 [facility] Surgeons Anahi Suarez PA-C) Discharge Medications: New oxycodone 5 mg tablet 5 mg PO Q6H 7 Days Qty: 28 RF: 0 acetaminophen 325 mg Tablet 650 mg PO Q6H 30 Days Qty: 240 RF: 0 aspirin 325 mg Tablet 325 mg PO BID 14 Days Qty: 28 RF: 0 Continued colchicine 0.6 mg tablet 0.6 mg PO DAILY Qty: 90 RF: 2 fenofibrate 160 mg tablet 160 mg PO DAILY Qty: 90 RF: 2 cyanocobalamin (vitamin B-12) 1,000 mcg tablet 1,000 mcg PO DAILY Qty: 90 RF: 3 metoprolol succinate 25 mg tablet extended release 24 hr 25 mg PO DAILY RF: 0 lisinopril 30 mg tablet 30 mg PO DAILY Qty: 90 RF: 0 gabapentin 600 mg tablet 600 mg PO BID Qty: 180 RF: 2 Discontinued tramadol 50 mg tablet 50 mg PO Q6-8H RF: 0 aspirin [Adult Aspirin Regimen] 81 mg tablet,delayed release (DR/EC) 81 mg PO DAILY RF: 0 No Action atorvastatin 10 mg tablet 10 mg PO DAILY Qty: 90 RF: 2 folic acid 1 mg tablet 1 mg PO DAILY Qty: 90 RF: 2 Discharge Orders: Discharge Order (Routine); Ordered 03/02/21 Ordered By: Anahi Suarez Diet: regular diet Activity on Discharge: Use cane or walker Stand Alone Forms: Patient Portal Discharge page Care Plan Goals: Restore function of joint Health Concerns: none Plan of Treatment: Physical Therapy Pain management DVT prophylaxis Assessment: * Physical Therapy for ROM 0-120, quad strength, gait training . Use walker for ambulation * Limit stair climbing, No shower, No tub bath, No driving * Continue Aspirin anticoagulant * Keep Aquacel dressing clean, dry and intact. * Follow up with orthopedics in 2 weeks Discharge Date/Time: 03/02/21 10:16
--- NOTE | 2021-03-02 09:31 | MHC.CM.PN ---
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 visist tomorrow
[2021-03-02] MEDS: Fenofibrate 160 MG TABLET PO (09:39)
[2021-03-02] MEDS: oxyCODONE HCl Immed Release 5 MG TABLET 10 MG PO (09:39)
[2021-03-02] MEDS: Cyanocobalamin (Vitamin B-12) 1,000 MCG TABLET 1000 MCG PO (09:39)
[2021-03-02] MEDS: lisinopriL 10 MG TABLET 30 MG PO (09:39)
[2021-03-02] MEDS: Gabapentin 600 MG TABLET PO (09:39)
[2021-03-02] MEDS: Aspirin 325 MG TABLET PO (09:39)
[2021-03-02] MEDS: Colchicine 0.6 MG TABLET PO (09:40)
[2021-03-02] MEDS: Atorvastatin Calcium 10 MG TABLET PO (09:40)
--- NOTE | 2021-03-02 11:21 | HO.PM.IMPN ---
Subjective Subjective Date of Service: 03/02/21 Interval History: the patient was seen and evaluated this morning Laying in bed, feels comfortable Denies any fever, chills or shortness of breath No reported other overnight events. Systemic review: No fever, chills or weakness No chest pain, palpitation No shortness of breath or coughing No abdominal pain, nausea or vomiting Physical Exam Vital Signs: Vital Signs: Last Vital Signs Temp 98.0 F 03/02/21 07:29 Pulse 66 03/02/21 07:29 Resp 18 03/02/21 07:29 BP 132/61 03/02/21 07:29 Pulse Ox 95 03/02/21 07:29 Body Mass Index 26.6 Const: Other: Constitutional : Alert, oriented, not in distress Neck : Normal inspection, Supple Cardiovascular : RRR, S1 S2, no lower extremity edema Respiratory : Good bilateral air entry, no crackles Gastrointestinal: soft, lax, Normal bowel sounds, Non tender Skin : Warm/Dry, No rash, Knee Rt in dressing no drainage or discharge noted Neurological : Alert & oriented x3, No focal deficit Objective Data Labs CBC & Chem 7: 03/02/21 07:51 Assessment and Plan (1) Hypertension: Status: Acute Assessment and Plan: 81-year-old man admitted Orthopedic surgery and status post right total knee arthroplasty. Right total knee arthroplasty. management as per surgical team pod 2 PT with plan to dc Hypertension. Blood pressure better controlled continue lisinopil Diabetes mellitus sliding scale ADA diet
--- NOTE | 2021-03-03 09:55 | P.OP_ITS ---
Operative Note Operative Note Date of Service: 02/28/21 Narrative: SURGEON: Dr Bradley Angeles) Arleen MCCABE GOODYEAR STITCHER: Anahi LEMUS PREOP DIAGNOSIS: She arthritis right knee POSTOP DIAGNOSIS: Same OPERATIVE PROCEDURE: Right Total knee arthroplasty - JOSE NEXGEN CRFlex size E right femur, 5 x 10 mm monoblock tibial component, 32 mm monoblock patellar component CLINICAL NOTE: This individual comes in today in regards to their knee. Has osteoarthritis. Has failed non operative management. Therefore after explaining the risks benefits and alternatives and answering all the questions it was mutually agreed upon care following procedure OPERATIVE DETAILS With of regional and spinal anesthetic the patient was placed supine on the operating table. Pneumatic tourniquet cuff was placed around the upper thigh and inflated to 300 mm of mercury at the beginning of the case. The leg was then prepped and draped in standard fashion with the leg free. Surgical time-out was then performed. The patient was identified. Procedure confirmed. Site confirmed. Medical and allergy history reviewed. Preoperative antibiotics were given. Standard DVT prophylaxis in place. Tranexamic acid was given as well. All other items were discussed and agreed upon. Standard small midline incision was made. Was taken down through the subcutaneous tissues. Hemostasis achieved along the way using electrocautery. This brought us to the extensor mechanism where a medial parapatellar arthrotomy in a subvastus technique was performed. The patella was retracted into the lateral gutter. The soft tissues were elevated from the anterior aspect of the femur. At the level of the tibia the soft tissue elevated medially excising a portion of the meniscus as well as protecting the medial-sided soft tissues. Similarly on the lateral side a portion of the fat pad, portion of the meniscus were excised. The lateral-sided soft tissues were elevated protecting them as well. The ACL was resected. We turned our attention then to the femur. Standard ex to medullary hole was established. The cutting guide was set for 5 degrees of valgus with a standard cut. It was held in place with pins and the surface resected flat. The sizing guide was then used. The femur was sized to a E. The 3 degree external rotation pins were set. The all in 1 cutting guide for this size was placed the pins and centered over the distal cut. Following this the anterior and anterior chamfer cuts, the posterior and posterior chamfer cuts, the patellar recess cuts, as well as the lug holes were made. The guide was removed. The bony fragments removed and we turned our attention to the tibia. The remainder of the medial and lateral menisci were excised. The extramedullary guide was then used in standard fashion referencing the tibial tubercle, the subcutaneous border of the tibia, and the middle of the ankle. The slope was then set. The cut was referenced from the more worn size for a minimal cut. The surface was then resected. The bony segment removed. The tibia was then trialed to a size 5. It was aligned as the extra medullary guide had been. A 10 mm trial insert was put into place. The femoral trial was also applied with good fit. The alignment of the leg was excellent. The knee was then placed through a range of motion which demonstrated full extension full flexion stable medially and laterally at 0, 30, 60, and 90 degrees of flexion. Patella tracked centrally. Turning our attention to the patella. The soft tissues were elevated circumferentially. The surface was resected flat. It sized to a 32 mm. A lug hole was drilled in standard fashion. The trial component was put into place with excellent fit. It tracked nicely through flexion extension. Therefore the trial sizes were appropriate and therefore the permanent components were selected and brought up onto the table. The trial components were then all removed after the peg holes for the tibia were made. The tourniquet was then let down with total tourniquet time of 48. The area of the lateral geniculate artery was identified and cauterized. Any excessive bleeding points were also cauterized. The knee was then thoroughly irrigated. The permanent components were brought up onto the table. The tibia followed by the femur followed by the patella were all Press-Fit into place. The knee was placed through range of motion. It had full flexion and extension. He was stable medial laterally in all positions. Patella tracked centrally. And therefore we proceeded to closure. Wound was thoroughly irrigated. The extensor mechanism was closed with #2 Quill suture. The skin was approximated with 2-0 Polysorb suture. The skin was closed with geremias. Sterile dressing was then applied. The patient was then transferred supine to the room bed and taken to the recovery room in good condition. Intraoperatively a 2nd unit a transit make acid was given at the time of closure. There was approximately 50 cc of a blood loss. No intraop transfusions or complications. .
== END 2021-03-02 10:16 | disposition home health service (06) | DRG 470 ==
LOC: HO.SSSA 08:32 → HO.S3 14:21
PROVIDERS: Physician Assistant; Admitting Provider Orthopaedic Surgery; PCP Internal Medicine; Visit Provider Orthopaedic Surgery
PROC: 0SRC0JA Replacement of Right Knee Joint with Synthetic Substitute, Uncemented, Open Approach (ICD-10-PCS; CPT 27447; principal; 2021-02-28 09:50)
DX: M17.11 Unilateral primary osteoarthritis, right knee (principal); I10 Essential (primary) hypertension; E11.9 Type 2 diabetes mellitus without complications; Z20.822 Contact with and (suspected) exposure to COVID-19; Z79.899 Other long term (current) drug therapy
CPT/HCPCS: 27447; 36415; 73560; 82947; 85014; 85018; 86850; 86900; 86901; 87635; 88305; 88311; 97110; 97116; 97161; 97165; C1776; J0690; J1100; J1885; J2405; J3010

== ENCOUNTER → 2021-03-16 12:37 | Outpatient (BNVA) | payer MEDICARE, SELFPAY | PROVIDERS: PCP Internal Medicine; Visit Provider Physician Assistant | DX: Z47.1 Aftercare following joint replacement surgery (principal); Z96.659 Presence of unspecified artificial knee joint | CPT/HCPCS: 99212 ==

== ENCOUNTER → 2021-04-06 08:29 | Outpatient (BNVA) | payer MEDICARE, SELFPAY | PROVIDERS: PCP Internal Medicine; Visit Provider Orthopaedic Surgery | DX: Z96.651 Presence of right artificial knee joint (principal) | CPT/HCPCS: 99212 ==

== ENCOUNTER 2021-04-15 11:00 | Outpatient (RCR) | payer MEDICARE, SELFPAY ==
--- NOTE | 2021-03-21 13:47 | MHC.PT.EP ---
[facility] [place] Office [place] Office [place] Office [address] Raomna Jennings [address] [phone] F: [phone] F: [phone] F: [phone] F: [phone] Physical Therapy Plan of Care Date of Evaluation: Date of Surgery: Diagnosis: s/p TKA Assessment: 81 y/o male s/p R TKA on 02/28/21. Pt stayed in the hospital for 2 days following surgery and was d/c home. He then had two weeks of home PT. Reports difficulty with standing > 5min, walking > 5min, and stairs. His assists with some ADL s and cooking. Currently pt shows decreased R knee A/AAROM (0-12-97), decreased B LE strength, impaired balance, and impaired gait pattern. Frequency and Duration: The patient will be seen 2x/week for 5 weeks Short Term Goals: 3 weeks 1. I with HEP 2. Demonstrate R knee AROM 0-4-115 3. Demonstrate SLR 2x10 sets Senior Tableau Developer Goals: 5 weeks 1. I with HEP and self management of sx 2. Pt will be able to ascend/descend stairs with rail and pain < 3/10 3. Pt will be able to ambulate > 15min with pain < 3/10 Treatment Plan: Modalities to reduce pain, spasms and effusion. Manual therapy to restore motion and function. Therapeutic exercise to improve strength and flexibility. Neuromuscular re-education for posture and balance. Therapeutic activities to return to functional activities of daily living. Electronically signed by: Lashonda De La Garza PT Please sign and return to therapist. Thank you for your referral.
--- NOTE | 2021-05-13 09:44 | MHC.PT.DC ---
[facility] [place] Office [place] Office [place] Office [address] Ramona Jennings [address] [phone] F: [phone] F: [phone] F: [phone] F: [phone] Physical Therapy Discharge Report Diagnosis: s/p TKA Date of Surgery: 02/28/21 Date of Evaluation: 03/21/21 Date of Discharge: 05/13/21 Treatments to Date: 7 Cancellations to Date: 0 No Shows to Date: 0 Discharge Status: Achieved Goals Improved Function Independent with HEP Discharge Summary: He has made good progress and demonstrates 0-118 knee AROM. His gait pattern has improved but he still continues to have increased adduction tendencies B, increased rotation at spine. He sees surgeon on Sunday for f/u. D/c at this time to I HEP Electronically signed by: Lashonda De La Garza PT Please sign and return to therapist. Thank you for your referral.
== END 2021-05-13 09:45 | disposition home or self-care (01) ==
LOC: HO.PTCHIC 11:00
PROVIDERS: PCP Internal Medicine; Visit Provider Orthopaedic Surgery
DX: Z96.651 Presence of right artificial knee joint (principal)
CPT/HCPCS: 97110; 97140; 97161; 97530

== ENCOUNTER 2021-07-07 08:33 | Outpatient (REF) | payer MEDICARE, SELFPAY ==
[2021-07-07 08:54] LABS: MANUAL DIFF FLAG NO
[2021-07-07 08:58] LABS: Basophils Percent Auto 0.4 % (0-2); Eosinophils Absolute Auto 0.3 X10*3/uL (0.0-0.4); Eosinophils Percent Auto 5.4 % (0-4); Hemoglobin 13.8 g/dl (14.0-18.0); Lymphocytes Absolute Auto 1.6 X10*3/uL (1.2-4.9); Lymphocytes Percent Auto 32.9 % (20-40); Mean Corpuscular HGB Conc 33.7 g/dl (31.0-36.0); Mean Corpuscular Hemoglobin 29.5 pg (27.0-33.0); Mean Corpuscular Volume 87.6 fL (80-98); Monocytes Absolute Auto 0.4 X10*3/uL (0.1-1.2); Monocytes Percent Auto 8.1 % (2-11); Neutrophils Absolute Auto 2.6 X10*3/uL (2.0-8.3); Neutrophils Percent Auto 53.2 % (45-73); Platelet Count 249 X10*3/uL (160-400); Red Blood Count 4.68 X10*6/uL (4.60-5.80); Red Cell Distribution Width 14.2 % (11.0-16.0); Reticulocytes Absolute 0.047 X10*6/uL (0.026-0.095); White Blood Count 4.8 X10*3/uL (4.8-10.8)
[2021-07-07 09:24] LABS: Alanine Aminotransferase 8 U/L (0-40); Albumin Level 3.9 g/dL (3.5-5.0); Alkaline Phosphatase 84 U/L (39-117); Anion Gap 12 (12-20); Aspartate Amino Transferase 15 U/L (5-37); Bilirubin Total 0.5 mg/dL (0.0-1.0); Blood Urea Nitrogen 13 mg/dL (9-16); Calcium 9.5 mg/dL (8.4-10.2); Carbon Dioxide 24 mmol/L (22-29); Chloride 108 mmol/L (96-108); Estimated Glomerular Filt Rate > 60; Glucose Random 117 mg/dL (60-115); Iron 61 mcg/dL (45-160); Percent Iron Saturation 21 % (15-50); Potassium 3.8 mmol/L (3.3-5.1); Sodium 140 mmol/L (135-145); Total Iron Binding Capacity 294 mcg/dL (228-428); Total Protein 6.7 g/dL (6.5-8.0); Unsaturated Iron Binding 233 ug/dL
[2021-07-07 09:55] LABS: Folate 11.1 ng/mL (> or = 4.0); Vitamin B12 245 pg/mL (200-900)
[2021-07-07 10:20] LABS: Ferritin 51 ng/mL (20-250)
== END 2021-07-07 08:34 | disposition home or self-care (01) ==
LOC: HO.LAB 08:33
PROVIDERS: PCP Internal Medicine; Visit Provider Internal Medicine
DX: D64.9 Anemia, unspecified (principal)
CPT/HCPCS: 36415; 80053; 82607; 82728; 82746; 83540; 85025; 85045